=== PATIENT | male | born 1980 | race Caucasian/White ===

== ENCOUNTER 2019-03-05 21:46 | Emergency (ER) | payer BC ==
[~2019-03-05] VITALS: Ht 170.2 cm; Wt 83.9 kg
[2019-03-05 22:10] VITALS: BP_SYST 159
[2019-03-06 00:16] VITALS: BP_SYST 132
== END 2019-03-06 00:16 | disposition home or self-care (01) ==
LOC: SED 21:46
DX: N50.811 Right testicular pain (principal)
CPT/HCPCS: 76870-TC; 99284